=== PATIENT | male | born 1950 | race Caucasian/White ===

== ENCOUNTER 2019-11-16 14:57 | Inpatient (IN) | payer OTHER ==
[~2019-11-16] VITALS: Ht 172.7 cm; Wt 106.6 kg
[2019-11-16 16:24] VITALS: BP_SYST 157
[2019-11-16] MEDS ORDERED: NACL 0.9% 3,000 ML IV ONE (16:58)
[2019-11-16] MEDS ORDERED: cefTRIAXone 1 GM IVPB PREMIX 50 ML IV ONE (17:00)
[2019-11-16 17:31] LABS: BASOPHILS # (AUTO) 0.1 K/uL (0.0-0.2); EOSINOPHILS # (AUTO) 0.1 K/uL (0.0-0.4); LYMPHOCYTES # (AUTO) 0.6 K/uL (1.0-5.5); NEUTROPHILS # (AUTO) 8.9 K/uL (1.8-7.7)
[2019-11-16 17:36] LABS: BASOPHILS % (AUTO) 0.5 % (0.0-2.0); EOSINOPHILS % (AUTO) 0.6 % (0.0-4.0); HEMATOCRIT 47.6 % (36-54); HEMOGLOBIN 16.2 g/dL (14.0-18.0); LYMPHOCYTES % (AUTO) 6.2 % (20.5-51.5); MEAN CORPUSCULAR HEMOGLOBIN 31 pg (27-31); MEAN CORPUSCULAR HGB CONC 34 % (32-36); MEAN CORPUSCULAR VOLUME 92 fL (79.0-98.0); MONOCYTES # (AUTO) 0.6 K/uL (0.0-1.0); MONOCYTES % (AUTO) 5.6 % (1.7-9.3); NEUTROPHILS % (AUTO) 87.1 % (40.0-70.0); PLATELET COUNT (AUTO) 227 K/uL (130-430); RED BLOOD CELL COUNT(AUTO) 5.15 MIL/uL (4.2-6.2); RED CELL DISTRIBUTION WIDTH 13.8 % (9.0-15.0); WHITE BLOOD COUNT (AUTO) 10.2 K/uL (4.8-10.8)
[2019-11-16 17:38] LABS: CALCIUM 8.6 mg/dL (8.4-11.0); CREATININE 0.81 mg/dL (0.55-1.30); POTASSIUM 3.4 mmol/L (3.5-5.1)
[2019-11-16 17:44] LABS: ALBUMIN 3.8 g/dL (3.4-4.8); TOTAL BILIRUBIN 0.6 mg/dL (0.0-1.0)
[2019-11-16] MEDS ORDERED: CYAN100070 PO (21:46)
[2019-11-16] MEDS ORDERED: VITD400 PO (21:46)
[2019-11-16] MEDS ORDERED: IBUP-2101 (21:46)
[2019-11-16 22:26] VITALS: BP_SYST 155
[2019-11-16 22:48] VITALS: BP_SYST 156
[2019-11-17 00:06] VITALS: BP_SYST 140
[2019-11-17] MEDS ORDERED: IBUPROFEN 400 MG TABLET PO PRN (02:30)
[2019-11-17] MEDS: DIPHENHYDRAMINE HCL 25 MG CAPSULE PO PRN ×2 (02:32→22:49)
[2019-11-17 08:00] VITALS: BP_SYST 118
[2019-11-17] MEDS ORDERED: IPRATROPIUM/ALBUTEROL SULFATE 3 ML AMPUL.NEB (DUONEB) INH PRN (12:00)
[2019-11-17] MEDS ORDERED: HYDROcodone/ACETAMIN 5-325 MG TAB (NORCO/ VICODIN) PO PRN (12:30)
[2019-11-17] MEDS ORDERED: LORazepam 2 MG/ML VIAL IVP PRN (12:30)
[2019-11-17] MEDS ORDERED: ACETAMINOPHEN 325 MG TABLET PO PRN (12:30)
[2019-11-17] MEDS ORDERED: ONDANSETRON HCL 4 MG/2 ML VIAL IVP PRN (12:30)
[2019-11-17] MEDS: FLUCONAZOLE 200 mg/ NS 100 ML IV SCH (13:37)
[2019-11-17] MEDS: NORMAL SALINE 5 ML DISP.SYRIN IVF SCH ×4 (14:00→20:34)
[2019-11-17] MEDS: cefTRIAXone 1 GM in D5W 50 ML IV SCH (14:24)
[2019-11-17 14:42] VITALS: BP_SYST 118
[2019-11-17] MEDS: AZITHROMYCIN 500 MG in NS 250 ML IV SCH (15:28)
[2019-11-17] MEDS: IPRATROPIUM/ALBUTEROL SULFATE 3 ML AMPUL.NEB (DUONEB) INH SCH ×2 (15:59→20:00)
[2019-11-17 16:00] VITALS: BP_SYST 147
[2019-11-17 20:00] VITALS: BP_SYST 139
[2019-11-18 00:27] VITALS: BP_SYST 136
[2019-11-18] MEDS: HYDROcodone/ACETAMIN 10-325 MG TAB PO PRN ×2 (05:01→21:04)
[2019-11-18] MEDS: NORMAL SALINE 5 ML DISP.SYRIN IVF SCH ×6 (05:02→21:05)
[2019-11-18 06:34] LABS: BASOPHILS % (AUTO) 0.5 % (0.0-2.0); EOSINOPHILS # (AUTO) 0.3 K/uL (0.0-0.4); EOSINOPHILS % (AUTO) 3.3 % (0.0-4.0); HEMATOCRIT 45.9 % (36-54); HEMOGLOBIN 15.5 g/dL (14.0-18.0); LYMPHOCYTES # (AUTO) 0.9 K/uL (1.0-5.5); LYMPHOCYTES % (AUTO) 10.3 % (20.5-51.5); MEAN CORPUSCULAR HEMOGLOBIN 32 pg (27-31); MEAN CORPUSCULAR HGB CONC 34 % (32-36); MEAN CORPUSCULAR VOLUME 93 fL (79.0-98.0); MONOCYTES # (AUTO) 0.9 K/uL (0.0-1.0); MONOCYTES % (AUTO) 9.9 % (1.7-9.3); NEUTROPHILS # (AUTO) 6.7 K/uL (1.8-7.7); PLATELET COUNT (AUTO) 212 K/uL (130-430); RED BLOOD CELL COUNT(AUTO) 4.92 MIL/uL (4.2-6.2); RED CELL DISTRIBUTION WIDTH 14.1 % (9.0-15.0); WHITE BLOOD COUNT (AUTO) 8.8 K/uL (4.8-10.8)
[2019-11-18 07:29] LABS: C-REACTIVE PROTEIN QUANT 6.3 mg/dL (0-0.5); CALCIUM 8.8 mg/dL (8.4-11.0); CREATININE 0.94 mg/dL (0.55-1.30); POTASSIUM 3.6 mmol/L (3.5-5.1)
[2019-11-18 08:00] VITALS: BP_SYST 149
[2019-11-18] MEDS: IPRATROPIUM/ALBUTEROL SULFATE 3 ML AMPUL.NEB (DUONEB) INH SCH ×3 (08:03→20:15)
[2019-11-18] MEDS: CYANOCOBALAMIN 1000 mCg TABLET PO SCH (08:24)
[2019-11-18] MEDS: CHOLECALCIFEROL (VITAMIN D-3) 400 UNIT TABLET PO SCH (08:24)
[2019-11-18 09:50] LABS: ERYTHROCYTE SEDIMENTATION RATE 12 MM/HR (0-15)
[2019-11-18 12:20] VITALS: BP_SYST 120
[2019-11-18] MEDS: AZITHROMYCIN 500 MG in NS 250 ML IV SCH (13:02)
[2019-11-18] MEDS: cefTRIAXone 1 GM in D5W 50 ML IV SCH (13:02)
[2019-11-18] MEDS: FLUCONAZOLE 200 mg/ NS 100 ML IV SCH (13:03)
[2019-11-18 16:21] VITALS: BP_SYST 128
[2019-11-18 20:00] VITALS: BP_SYST 135
[2019-11-19 00:01] VITALS: BP_SYST 139
[2019-11-19] MEDS: DIPHENHYDRAMINE HCL 25 MG CAPSULE PO PRN ×2 (01:55→22:11)
[2019-11-19] MEDS: NORMAL SALINE 5 ML DISP.SYRIN IVF SCH ×5 (05:42→22:15)
[2019-11-19] MEDS: IPRATROPIUM/ALBUTEROL SULFATE 3 ML AMPUL.NEB (DUONEB) INH SCH ×3 (07:11→20:00)
[2019-11-19 07:14] LABS: BASOPHILS # (AUTO) 0.1 K/uL (0.0-0.2); BASOPHILS % (AUTO) 0.9 % (0.0-2.0); EOSINOPHILS # (AUTO) 0.4 K/uL (0.0-0.4); EOSINOPHILS % (AUTO) 6.3 % (0.0-4.0); HEMATOCRIT 44.2 % (36-54); HEMOGLOBIN 15.2 g/dL (14.0-18.0); LYMPHOCYTES # (AUTO) 1.1 K/uL (1.0-5.5); LYMPHOCYTES % (AUTO) 16.2 % (20.5-51.5); MEAN CORPUSCULAR HEMOGLOBIN 32 pg (27-31); MEAN CORPUSCULAR HGB CONC 34 % (32-36); MEAN CORPUSCULAR VOLUME 92 fL (79.0-98.0); MONOCYTES # (AUTO) 0.8 K/uL (0.0-1.0); MONOCYTES % (AUTO) 11.5 % (1.7-9.3); NEUTROPHILS # (AUTO) 4.5 K/uL (1.8-7.7); NEUTROPHILS % (AUTO) 65.1 % (40.0-70.0); PLATELET COUNT (AUTO) 228 K/uL (130-430); RED BLOOD CELL COUNT(AUTO) 4.79 MIL/uL (4.2-6.2); RED CELL DISTRIBUTION WIDTH 14.1 % (9.0-15.0); WHITE BLOOD COUNT (AUTO) 6.9 K/uL (4.8-10.8)
[2019-11-19 07:41] LABS: ALBUMIN 3.1 g/dL (3.4-4.8); C-REACTIVE PROTEIN QUANT 5.3 mg/dL (0-0.5); CALCIUM 8.7 mg/dL (8.4-11.0); CREATININE 0.76 mg/dL (0.55-1.30); POTASSIUM 3.3 mmol/L (3.5-5.1); TOTAL BILIRUBIN 0.5 mg/dL (0.0-1.0)
[2019-11-19 08:00] VITALS: BP_SYST 134
[2019-11-19 08:11] LABS: ERYTHROCYTE SEDIMENTATION RATE 16 MM/HR (0-15)
[2019-11-19] MEDS: CYANOCOBALAMIN 1000 mCg TABLET PO SCH (09:54)
[2019-11-19] MEDS: CHOLECALCIFEROL (VITAMIN D-3) 400 UNIT TABLET PO SCH (09:54)
[2019-11-19] MEDS: AZITHROMYCIN 500 MG in NS 250 ML IV SCH (11:53)
[2019-11-19] MEDS ORDERED: guaiFENesin ER 600 MG TAB PO ONE (12:00)
[2019-11-19 13:21] VITALS: BP_SYST 132
[2019-11-19] MEDS: PREDNISONE 20 MG TABLET PO SCH (13:27)
[2019-11-19] MEDS: FLUCONAZOLE 200 mg/ NS 100 ML IV SCH (15:03)
[2019-11-19] MEDS: cefTRIAXone 1 GM in D5W 50 ML IV SCH (16:36)
[2019-11-19 20:10] VITALS: BP_SYST 125
[2019-11-19] MEDS: guaiFENesin ER 600 MG TAB PO SCH (21:00)
[2019-11-19] MEDS: HYDROcodone/ACETAMIN 10-325 MG TAB PO PRN (22:12)
[2019-11-20 00:06] VITALS: BP_SYST 130
[2019-11-20] MEDS: NORMAL SALINE 5 ML DISP.SYRIN IVF SCH ×4 (06:00→20:48)
[2019-11-20 06:39] LABS: BASOPHILS # (AUTO) 0.1 K/uL (0.0-0.2); BASOPHILS % (AUTO) 0.7 % (0.0-2.0); EOSINOPHILS # (AUTO) 0.1 K/uL (0.0-0.4); EOSINOPHILS % (AUTO) 0.9 % (0.0-4.0); HEMATOCRIT 44.4 % (36-54); LYMPHOCYTES # (AUTO) 1.3 K/uL (1.0-5.5); LYMPHOCYTES % (AUTO) 13.7 % (20.5-51.5); MEAN CORPUSCULAR HEMOGLOBIN 31 pg (27-31); MEAN CORPUSCULAR HGB CONC 34 % (32-36); MEAN CORPUSCULAR VOLUME 93 fL (79.0-98.0); MONOCYTES # (AUTO) 0.5 K/uL (0.0-1.0); MONOCYTES % (AUTO) 5.4 % (1.7-9.3); NEUTROPHILS # (AUTO) 7.6 K/uL (1.8-7.7); NEUTROPHILS % (AUTO) 79.3 % (40.0-70.0); PLATELET COUNT (AUTO) 250 K/uL (130-430); RED BLOOD CELL COUNT(AUTO) 4.79 MIL/uL (4.2-6.2); RED CELL DISTRIBUTION WIDTH 13.6 % (9.0-15.0); WHITE BLOOD COUNT (AUTO) 9.6 K/uL (4.8-10.8)
[2019-11-20 06:57] LABS: CALCIUM 8.4 mg/dL (8.4-11.0); CREATININE 0.8 mg/dL (0.55-1.30); POTASSIUM 4.3 mmol/L (3.5-5.1)
[2019-11-20 08:00] VITALS: BP_SYST 128
[2019-11-20 08:20] VITALS: BP_SYST 130
[2019-11-20] MEDS: IPRATROPIUM/ALBUTEROL SULFATE 3 ML AMPUL.NEB (DUONEB) INH SCH ×3 (08:20→20:41)
[2019-11-20 10:32] LABS: ERYTHROCYTE SEDIMENTATION RATE 16 MM/HR (0-15)
[2019-11-20] MEDS: CYANOCOBALAMIN 1000 mCg TABLET PO SCH (10:34)
[2019-11-20] MEDS: PREDNISONE 20 MG TABLET PO SCH (10:35)
[2019-11-20] MEDS: CHOLECALCIFEROL (VITAMIN D-3) 400 UNIT TABLET PO SCH (10:35)
[2019-11-20] MEDS: guaiFENesin ER 600 MG TAB PO SCH ×2 (10:35→20:48)
[2019-11-20] MEDS: AZITHROMYCIN 500 MG in NS 250 ML IV SCH (12:19)
[2019-11-20 13:05] VITALS: BP_SYST 128
[2019-11-20] MEDS: FLUCONAZOLE 200 mg/ NS 100 ML IV SCH (14:24)
[2019-11-20] MEDS: cefTRIAXone 1 GM in D5W 50 ML IV SCH ×2 (15:36→18:48)
[2019-11-20 16:10] VITALS: BP_SYST 134
[2019-11-20 20:00] VITALS: BP_SYST 136
[2019-11-20 21:06] LABS: MYCOPLASMA PNEUMONIAE IgM <770 U/mL (0-769)
[2019-11-20] MEDS: DIPHENHYDRAMINE HCL 25 MG CAPSULE PO PRN (23:57)
[2019-11-20] MEDS: HYDROcodone/ACETAMIN 10-325 MG TAB PO PRN (23:58)
[2019-11-21] VITALS: BP_SYST 134
[2019-11-21] MEDS: NORMAL SALINE 5 ML DISP.SYRIN IVF SCH ×2 (06:04→13:57)
[2019-11-21 07:32] LABS: C-REACTIVE PROTEIN QUANT 1.5 mg/dL (0-0.5); CALCIUM 8.6 mg/dL (8.4-11.0); CREATININE 0.81 mg/dL (0.55-1.30); POTASSIUM 3.6 mmol/L (3.5-5.1)
[2019-11-21 07:58] LABS: BASOPHILS # (AUTO) 0.1 K/uL (0.0-0.2); BASOPHILS % (AUTO) 0.7 % (0.0-2.0); EOSINOPHILS # (AUTO) 0.1 K/uL (0.0-0.4); EOSINOPHILS % (AUTO) 1.1 % (0.0-4.0); HEMATOCRIT 43.9 % (36-54); HEMOGLOBIN 15.1 g/dL (14.0-18.0); LYMPHOCYTES # (AUTO) 1.9 K/uL (1.0-5.5); LYMPHOCYTES % (AUTO) 20.9 % (20.5-51.5); MEAN CORPUSCULAR HEMOGLOBIN 32 pg (27-31); MEAN CORPUSCULAR HGB CONC 34 % (32-36); MEAN CORPUSCULAR VOLUME 93 fL (79.0-98.0); MONOCYTES # (AUTO) 0.6 K/uL (0.0-1.0); MONOCYTES % (AUTO) 7.1 % (1.7-9.3); NEUTROPHILS # (AUTO) 6.3 K/uL (1.8-7.7); NEUTROPHILS % (AUTO) 70.2 % (40.0-70.0); PLATELET COUNT (AUTO) 282 K/uL (130-430); RED BLOOD CELL COUNT(AUTO) 4.72 MIL/uL (4.2-6.2); RED CELL DISTRIBUTION WIDTH 13.8 % (9.0-15.0); WHITE BLOOD COUNT (AUTO) 8.9 K/uL (4.8-10.8)
[2019-11-21 08:00] VITALS: BP_SYST 131
[2019-11-21 09:19] LABS: ERYTHROCYTE SEDIMENTATION RATE 11 MM/HR (0-15)
[2019-11-21] MEDS: CYANOCOBALAMIN 1000 mCg TABLET PO SCH (09:41)
[2019-11-21] MEDS: guaiFENesin ER 600 MG TAB PO SCH (09:41)
[2019-11-21] MEDS: CHOLECALCIFEROL (VITAMIN D-3) 400 UNIT TABLET PO SCH (09:41)
[2019-11-21] MEDS: PREDNISONE 20 MG TABLET PO SCH (09:41)
[2019-11-21] MEDS: AZITHROMYCIN 500 MG in NS 250 ML IV SCH (11:35)
[2019-11-21 12:41] VITALS: BP_SYST 136
[2019-11-21] MEDS: cefTRIAXone 1 GM in D5W 50 ML IV SCH (13:02)
[2019-11-21] MEDS: FLUCONAZOLE 200 mg/ NS 100 ML IV SCH (13:58)
[2019-11-21] MEDS: HYDROcodone/ACETAMIN 10-325 MG TAB PO PRN (14:06)
[2019-11-21] MEDS: IPRATROPIUM/ALBUTEROL SULFATE 3 ML AMPUL.NEB (DUONEB) INH SCH (14:51)
[2019-11-21] MEDS ORDERED: DOXY100T2 PO (14:57)
[2019-11-21] MEDS ORDERED: DIF100 PO (14:57)
[2019-11-21 15:50] VITALS: BP_SYST 123
[2019-11-21 16:45] VITALS: BP_SYST 137
== END 2019-11-21 17:45 | disposition home or self-care (01) | DRG 177 ==
LOC: SED 14:57 → STU 18:47 → SMU 11-18 11:33
PROVIDERS: ADMIT Preventive Medicine Preventive Medicine/Occupational Environmental Medicine; ATTEND Preventive Medicine Preventive Medicine/Occupational Environmental Medicine
DX: B38.2 Pulmonary coccidioidomycosis, unspecified (principal); J12.9 Viral pneumonia, unspecified; J20.9 Acute bronchitis, unspecified; I10 Essential (primary) hypertension; E78.5 Hyperlipidemia, unspecified; E66.9 Obesity, unspecified; E87.6 Hypokalemia; Z96.651 Presence of right artificial knee joint; G89.29 Other chronic pain; R73.9 Hyperglycemia, unspecified; Z82.49 Family history of ischemic heart disease and other diseases of the circulatory system; Z68.35 Body mass index [BMI] 35.0-35.9, adult; Z79.899 Other long term (current) drug therapy
CPT/HCPCS: 36415; 36600; 71045; 71250-TC; 80048; 80053; 82803-TC; 83605; 85025; 85379; 85651-TC; 86140; 86480; 86635; 86738; 87040-TC; 87449; 94640; 94760; 96361; 96365; 99285; G0378; J0456; J0696; J1450; J1956; J7030; J7050; J7060; J7512; J7620; Q0163